=== PATIENT | male | born 1985 | race Two or more races ===

== ENCOUNTER 2018-11-10 22:29 | Emergency (ER) | payer SELFPAY ==
[~2018-11-10] VITALS: Ht 185.4 cm; Wt 106.6 kg
[2018-11-10] MEDS ORDERED: TETANUS-DIPTH-ACEL PERTUSSIS 0.5ML SYRG IM ONE (23:15)
[2018-11-10] MEDS ORDERED: cefTRIAXone SOD 1,000 MG VL IM ONE (23:15)
[2018-11-10 23:22] LABS: Basophils # (auto) 0 uL; Eosinophils # (auto) 0.1 uL; Mean Corpuscular Hemoglobin 30.5 pg (28.0-32.0); Monocytes # (auto) 0.5 uL; White Blood Cell 5.3 10^3/uL (4.4-10.8)
[2018-11-10 23:24] LABS: Basophils % (auto) 0.5 % (0.0-2.0); Hematocrit 52.6 % (41.0-53.0); Hemoglobin 17.9 g/dL (13.5-17.5); Lymphocytes # (auto) 0.9 uL; Lymphocytes % (auto) 16.1 % (10.0-50.0); Mean Corpuscular Hgb Conc. 33.9 g/dL (32.0-36.0); Mean Corpuscular Volume 89.8 fL (80.0-100.0); Monocytes % (auto) 9.8 % (0.0-12.0); Neutrophils # (auto) 3.8 uL; Neutrophils % (auto) 71.6 % (37.0-80.0); Platelet Count (auto) 162 10^3/uL (140-450); Red Blood Cells 5.86 10^6/uL (4.5-5.90); Red Cell Distribution Width 14.6 % (11.8-14.3)
[2018-11-11] MEDS ORDERED: LIDOCAINE W/ EPINEPHRINE 2% INJ 20ML VIAL ONE (00:44)
[2018-11-11 01:09] VITALS: BP 132/76
== END 2018-11-11 01:11 | disposition home or self-care (01) ==
LOC: ER 22:34
DX: S01.01XA Laceration without foreign body of scalp, initial encounter (principal); S16.1XXA Strain of muscle, fascia and tendon at neck level, initial encounter; V43.52XA Car driver injured in collision with other type car in traffic accident, initial encounter; Y93.89 Activity, other specified; Y99.8 Other external cause status; Y92.410 Unspecified street and highway as the place of occurrence of the external cause
CPT/HCPCS: 12002; 36415; 70450; 72125; 80320; 85025; 90471; 90715; 96372; 99284; J0696